=== PATIENT | female | born 1995 | race Two or more races ===

== ENCOUNTER 2019-06-14 14:00 | Emergency (ER) | payer OTHER ==
[~2019-06-14] VITALS: Ht 162.6 cm; Wt 67.1 kg
[2019-06-14 14:14] VITALS: BP 122/76
[2019-06-14 15:16] LABS: Urine Bacteria NONE SEEN /hpf (None Seen); Urine Blood 3+ /uL (Negative); Urine Specific Gravity 1.017 (1.001-1.035); Urine WBC 25 /hpf (0 - 5)
== END 2019-06-14 15:30 | disposition home or self-care (01) ==
LOC: ER 14:00
DX: N94.6 Dysmenorrhea, unspecified (principal); N30.00 Acute cystitis without hematuria
CPT/HCPCS: 76830; 76856; 81001; 81025